=== PATIENT | male | born 1950 | race Caucasian/White ===

== ENCOUNTER 2019-10-30 09:46 | Emergency (ER) | payer OTHER, BC ==
[~2019-10-30] VITALS: Ht 180.3 cm; Wt 99.8 kg
--- NOTE | 2019-10-30 09:55 | NUR ---
Placed in room 6 . Placed on school lunch monitor, blood pressure machine and pulse oximeter. To gown for exam. Side rails up. Report given to ARIANE Murray.
[2019-10-30 09:57] VITALS: BP_SYST 125
--- NOTE | 2019-10-30 09:59 | NUR ---
RECEIVED AND IN ROOM, RACHEL TO ASSUME CARE. NO DISTRESS
[2019-10-30] MEDS ORDERED: OXYB10TA4 PO (10:06)
[2019-10-30] MEDS ORDERED: FURO-150 PO (10:06)
[2019-10-30] MEDS ORDERED: OLAN15TA3 PO (10:06)
[2019-10-30] MEDS ORDERED: POTA10TA15 PO (10:06)
[2019-10-30] MEDS ORDERED: NEU100 PO (10:06)
[2019-10-30] MEDS ORDERED: DIAZ5TAB PO (10:06)
[2019-10-30] MEDS ORDERED: VITD2000 PO (10:06)
--- NOTE | 2019-10-30 10:06 | NUR ---
Medication Rec completed.
[2019-10-30] MEDS ORDERED: NACL 0.9% 1,000 ML IV ONE (10:15)
[2019-10-30 10:28] LABS: BASOPHILS % (AUTO) 0.8 % (0.0-2.0); EOSINOPHILS # (AUTO) 0.1 K/uL (0.0-0.4); EOSINOPHILS % (AUTO) 1.5 % (0.0-4.0); HEMATOCRIT 41.8 % (36-54); HEMOGLOBIN 14.4 g/dL (14.0-18.0); LYMPHOCYTES # (AUTO) 0.8 K/uL (1.0-5.5); LYMPHOCYTES % (AUTO) 12.4 % (20.5-51.5); MEAN CORPUSCULAR HEMOGLOBIN 30 pg (27-31); MEAN CORPUSCULAR HGB CONC 35 % (32-36); MEAN CORPUSCULAR VOLUME 87 fL (79.0-98.0); MONOCYTES # (AUTO) 0.7 K/uL (0.0-1.0); MONOCYTES % (AUTO) 10.5 % (1.7-9.3); NEUTROPHILS # (AUTO) 4.9 K/uL (1.8-7.7); NEUTROPHILS % (AUTO) 74.8 % (40.0-70.0); PLATELET COUNT (AUTO) 250 K/uL (130-430); RED BLOOD CELL COUNT(AUTO) 4.83 MIL/uL (4.2-6.2); WHITE BLOOD COUNT (AUTO) 6.5 K/uL (4.8-10.8)
--- NOTE | 2019-10-30 10:28 | NUR ---
ALERT, CALM, CONFUSED. HX OF DEMENTIA. SKIN WARM AND DRY. COMMUNICATES CLEARLY IN FULL COMPLETE SENTENCES. BIB EMT FROM LOCAL HOSPITAL FOR HYPOTENSION/NEAR SYNCOPE. UPON ARRIVAL PT STATED FEELING BETTER AND WAS WEAK THIS AM. NO DISTRESS, CALM, RESP UNLABORED
[2019-10-30 10:36] LABS: CALCIUM 9.1 mg/dL (8.4-11.0); CREATININE 1.25 mg/dL (0.55-1.30); POTASSIUM 4.1 mmol/L (3.5-5.1)
[2019-10-30 10:43] LABS: ALBUMIN 3.2 g/dL (3.4-4.8); TOTAL BILIRUBIN 0.5 mg/dL (0.0-1.0)
--- NOTE | 2019-10-30 11:03 | NUR ---
NO CHANGE IN MENTATION, PT CALM, ALERT, SKIN WARM AND DRY.
--- NOTE | 2019-10-30 11:30 | NUR ---
REPORT TO YA AT [facility]
--- NOTE | 2019-10-30 12:46 | NUR ---
CALM, ALERT, RESP UNLABORED, DENIES PAIN. NO COMPLAINTS. TOLERATING PO WELL
[2019-10-30 14:15] VITALS: BP_SYST 132
--- NOTE | 2019-10-30 14:16 | NUR ---
Patient given written and verbal discharge instructions and verbalizes understanding. ER MD discussed with patient the results and treatment provided. Patient in stable condition. ID arm band removed. No Rx given. Patient educated on pain management and to follow up with PMD. Pain Scale 0/10. Opportunity for questions provided and answered. Medication side effect fact sheet provided.
== END 2019-10-30 14:15 ==
LOC: SED 09:46
DX: R55 Syncope and collapse (principal)
CPT/HCPCS: 36415; 71045; 80053; 81002; 82550; 84484; 85025; 93005; 99285; J7030